=== PATIENT | female | born 1980 | race American Indian/Alaskan Native ===

== ENCOUNTER 2017-04-18 14:13 | Emergency (ER) | payer BC ==
[2017-04-18 14:45] VITALS: BMI 27.4
[2017-04-18 14:47] VITALS: BP 110/71; PULSE 79; RESP 18; TEMP 98.6; O2SAT 100
--- NOTE | 2017-04-18 15:07 | ED PDOC ---
Arrival/HPI - General Chief Complaint: Abdominal Pain Time Seen by Provider: 04/18/17 14:49 Historian: Patient - History of Present Illness Narrative History of Present Illness (Text): 04/18/17 15:04 36yo female with PMhx of ovarian cyst present with 6months history of intermittent right sided pelvic pain. Pain is usually with urination with associated lower back pain. States she saw her [facility] for the pain and was given appointment for pelvis US in one week, but she didn't want to wait any longer. she has being taking Tylenol with some relieve. she denies fever, nausea, vomiting, dysuria, urinary frequency, melena, hematemesis, any other complaint. Past Medical History - Provider Review Nursing Documentation Reviewed: Yes - Past History Past History: Non-Contributing - Infectious Disease Hx of Infectious Diseases: None - Cardiac Hx Hypertension: Yes - Pulmonary Hx Respiratory Disorders: No - Neurological Hx Neurological Disorder: No - HEENT Hx HEENT Disorder: No - Renal Hx Renal Disorder: No - Endocrine/Metabolic Hx Endocrine Disorders: No - Hematological/Oncological Hx Blood Disorders: No - Integumentary Hx Dermatological Disorder: No - Musculoskeletal/Rheumatological Hx Musculoskeletal Disorders: No - Gastrointestinal Hx Gastrointestinal Disorders: No - Genitourinary/Gynecological Hx Genitourinary Disorders: Yes Hx Urinary Tract Infection: Yes Other/Comment: Ectopic . endometriosis - Psychiatric Hx Psychophysiologic Disorder: No Hx Substance Use: No - Surgical History Hx Cholecystectomy: Yes Other/Comment: L foot surgery. cyst removal - Anesthesia Hx Anesthesia: Yes Hx Anesthesia Reactions: No Hx Malignant Hyperthermia: No Family/Social History - Physician Review Nursing Documentation Reviewed: Yes Family/Social History: Unknown Family HX Smoking Status: Never Smoked Hx Alcohol Use: Yes Frequency of alcohol use: Socially Hx Substance Use: No Allergies/Home Meds Allergies/Adverse Reactions: Allergies No Known Allergies Allergy (Verified 01/02/16 15:07) Home Medications: Home Meds Medication Instructions Recorded Confirmed Ibuprofen [Motrin] 600 mg PO TID PRN 04/18/17 04/18/17 Review of Systems - Physician Review All systems were reviewed & negative as marked: Yes - Review of Systems Constitutional: Normal Eyes: Normal ENT: Normal Respiratory: Normal Cardiovascular: Normal Gastrointestinal: Abdominal Pain. absent: Constipation, Diarrhea, Nausea, Vomiting, Hematochezia, Hematemesis Genitourinary Female: Normal Musculoskeletal: Normal Skin: Normal Neurological: Normal Endocrine: Normal Hemo/Lymphatic: Normal Psychiatric: Normal Physical Exam Vital Signs Reviewed: Yes Vital Signs Temp Pulse Resp BP Pulse Ox 04/18/17 14:46 98.6 F 79 18 110/71 100 Temperature: Afebrile Blood Pressure: Normal Pulse: Regular Respiratory Rate: Normal Appearance: Positive for: Well-Appearing, Non-Toxic, Comfortable Pain Distress: None Mental Status: Positive for: Alert and Oriented X 3 - Systems Exam Head: Present: Atraumatic, Normocephalic Pupils: Present: PERRL Extroacular Muscles: Present: EOMI Conjunctiva: Present: Normal Mouth: Present: Moist Mucous Membranes Neck: Present: Normal Range of Motion Respiratory/Chest: Present: Clear to Auscultation, Good Air Exchange. No: Respiratory Distress, Accessory Muscle Use Cardiovascular: Present: Regular Rate and Rhythm, Normal S1, S2. No: Murmurs Abdomen: Present: Tenderness (Right pelvic tenderness), Normal Bowel Sounds, Other (soft). No: Distention, Peritoneal Signs, Rebound, Guarding, McBurney's Point Tender, Rovsing's Sign Present Back: Present: Normal Inspection Upper Extremity: Present: Normal Inspection. No: Cyanosis, Edema Lower Extremity: Present: Normal Inspection. No: Edema Neurological: Present: GCS=15, CN II-XII Intact, Speech Normal Skin: Present: Warm, Dry, Normal Color. No: Rashes Psychiatric: Present: Alert, Oriented x 3, Normal Insight, Normal Concentration Medical Decision Making ED Course and Treatment: 04/18/17 23:39 Pt in ED for stated history. Her pain is same intermittently for 6months now. She was comfortable in ED. Transvaginal US CERVIX: No cervical abnormality identified. RIGHT OVARY: Measures 3.2 x 3.5 x 1.8 cm. No solid mass. Normal flow. LEFT OVARY: Measures 3.3 x 1.3 x 3.3 cm. No solid mass. Normal flow. FREE FLUID: Trace fluid in cul-de-sac OTHER FINDINGS: None. IMPRESSION: Borderline endometrial thickness. Trace endometrial fluid. Trace fluid in cul- de-sac, nonspecific. Result was DW the pt. Her pain was controlled with medication in ED. she was DC home with Ibuprofen 600mg rx. she have a [facility] and was referred to her [facility]. - Lab Interpretations Lab Results: Lab Results 04/18/17 15:16: Urine Color Yellow, Urine Appearance Clear, Urine pH 6.0, Ur Specific Wayne >= 1.030, Urine Protein Negative, Urine Glucose (UA) Negative, Urine Ketones Negative, Urine Blood Negative, Urine Nitrate Negative, Urine Bilirubin Negative, Urine Urobilinogen 0.2, Ur Leukocyte Esterase Negative - RAD Interpretation Radiology Orders: 04/18/17 14:55 TRANSVAGINAL [US] Stat - Medication Orders Current Medication Orders: Discontinued Medications Ketorolac Tromethamine (Toradol) 60 mg IM STAT STA Stop: 04/18/17 14:58 Last Admin: 04/18/17 15:23 Dose: 60 mg MAR Pain Assessment Document 04/18/17 15:23 (Rec: 04/18/17 15:23 [id number]) Pain Reassessment Is this a pain reassessment? Yes IM Administration Charges Document 04/18/17 15:23 (Rec: 04/18/17 15:23 [id number]) Charges for Administration # of IM Administrations 1 Disposition/Present on Arrival - Present on Arrival Any Indicators Present on Arrival: No History of DVT/PE: No History of Uncontrolled Diabetes: No Urinary Catheter: No History of Decub. Ulcer: No History Surgical Site Infection Following: None - Disposition Have Diagnosis and Disposition been Completed?: Yes Diagnosis: Pelvic pain Disposition: HOME/ ROUTINE Disposition Time: 16:35 Patient Plan: Discharge Condition: STABLE Discharge Instructions (ExitCare): Pelvic Pain (ED) Additional Instructions: Follow up with your [facility] Return to ED for any new or worsening symptoms Prescriptions: Ibuprofen [Motrin Tab] 600 mg PO Q6 #20 tab Referrals: Johnathon Rogers MD [Staff Provider] - Follow up with primary Forms: [employer] (Armenian), WORK NOTE
[2017-04-18 15:45] LABS: URINE BILIRUBIN NEGATIVE (NEGATIVE); URINE BLOOD NEGATIVE (NEGATIVE); URINE GLUCOSE (UA) NEGATIVE (NEGATIVE); URINE LEUKOCYTE ESTERASE NEGATIVE Leu/uL (NEGATIVE); URINE NITRATE NEGATIVE (NEGATIVE); URINE PROTEIN NEGATIVE mg/dL (<30 mg/dL); URINE UROBILINOGEN 0.2 E.U./dL (<1 E.U./dL)
[2017-04-18 15:50] LABS: URINE APPEARANCE CLEAR (CLEAR); URINE COLOR YELLOW (YELLOW)
--- NOTE | 2017-04-18 16:20 | US ---
HISTORY: Rigyht pelvic pain COMPARISON: None available. TECHNIQUE: Transabdominal and transvaginal FINDINGS: UTERUS: Measures 6.1 x 4.0 x 4.9 cm. Normal in size and appearance. No fibroid or other mass lesion seen. ENDOMETRIUM: Measures 15 mm in diameter. Trace endometrial fluid. CERVIX: No cervical abnormality identified. RIGHT OVARY: Measures 3.2 x 3.5 x 1.8 cm. No solid mass. Normal flow. LEFT OVARY: Measures 3.3 x 1.3 x 3.3 cm. No solid mass. Normal flow. FREE FLUID: Trace fluid in cul-de-sac OTHER FINDINGS: None. IMPRESSION: Borderline endometrial thickness. Trace endometrial fluid. Trace fluid in cul-de-sac, nonspecific.
== END 2017-04-18 16:59 | disposition home or self-care (01) ==
LOC: ED 14:13
DX: R10.2 Pelvic and perineal pain (principal); I10 Essential (primary) hypertension
CPT/HCPCS: 76830; 81003; 96372; 99283; J1885